=== PATIENT | female | born 1960 ===

== ENCOUNTER 2020-06-26 06:00 | Outpatient (RCR) | payer MEDICARE, SELFPAY | END 2020-07-01 23:59 | disposition home or self-care (01) | LOC: MOT 06:00 | PROVIDERS: Referring Provider Nurse Practitioner; Visit Provider Nurse Practitioner | DX: I87.2 Venous insufficiency (chronic) (peripheral) (principal); R60.0 Localized edema | CPT/HCPCS: 97140; 97166 ==

== ENCOUNTER 2020-07-04 11:39 | Outpatient (RCR) | payer MEDICARE, SELFPAY | END 2020-07-31 23:59 | disposition home or self-care (01) | LOC: MOT 11:39 | PROVIDERS: Referring Provider Nurse Practitioner; Visit Provider Nurse Practitioner | DX: R60.0 Localized edema (principal); I87.2 Venous insufficiency (chronic) (peripheral) | CPT/HCPCS: 97140 ==